=== PATIENT | female | born 1975 | race Caucasian/White ===

== ENCOUNTER → 2016-08-31 | Emergency (ER) | payer BC ==
[~2016-08-31] VITALS: Ht 165.1 cm; Wt 60.5 kg
--- OUTSIDE RECORDS SUMMARY | 2016-08-31 13:34 | XMS REPORT | Continuity of Care Document ---
Author Author [facility] Organization [facility] Address Unknown Phone Unavailable Allergies Medications Problems Procedures Results Encounters ACCT No. Visit Date/Time Discharge Status Pt. Type Provider Facility Loc./Unit Complaint [id number] 04/08/2014 11:14:14 04/08/2014 23: 59:59 CLS Outpatient Carlo Juan [id number] 01/28/2014 17:11:28 01/28/2014 23: 59:59 CLS Outpatient Linda Haley [id number] 01/27/2014 10:01:02 01/27/2014 23: 59:59 CLS Outpatient Carlo Juan [id number] 09/21/2013 15:48:17 09/21/2013 23: 59:59 CLS Outpatient Carlo Juan [id number] 08/19/2013 11:05:00 08/19/2013 23: 59:59 CLS Outpatient Carlo Juan
[2016-08-31 14:52] VITALS: BP 129/62
--- NOTE | 2016-08-31 15:25 | Diagnostic Imaging Report ---
INDICATION: Injury to fifth digit. EXAMINATION: Left toes at 2:09 p.m. Three views were obtained. FINDINGS: There is an oblique slightly displaced slightly comminuted fracture of the waist of the proximal phalanx of the fifth digit. No other fracture or acute bony abnormality is identified. The soft tissues are unremarkable. IMPRESSION: There is an oblique slightly displaced slightly comminuted fracture of the midshaft of the proximal phalanx of the fifth digit. No other acute bony abnormality is identified. Dictated by: Dictated on workstation # [id number]
== END | disposition home or self-care (01) ==
LOC: EDUNIT# 13:25 → ED 13:29
DX: S92.512A Displaced fracture of proximal phalanx of left lesser toe(s), initial encounter for closed fracture (principal); W22.8XXA Striking against or struck by other objects, initial encounter; Y93.89 Activity, other specified; Y92.512 Supermarket, store or market as the place of occurrence of the external cause
CPT/HCPCS: 99282; 99283